=== PATIENT | female | born 1990 | race Caucasian/White ===

== ENCOUNTER 2018-09-23 14:00 | Inpatient (IN) ==
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
[2018-09-23 15:02] LABS: Basophils % 0.1 %; Hematocrit 42.3 % (35.3-44.9); Immature Granulocytes % 0.5 % (0-4); Lymphocytes # 2.7 K/mcL (0.6-4.6); Mean Corpuscular HGB Conc 33.1 g/dL (31.6-35.5); Mean Corpuscular Hemoglobin 28.7 pg (28.0-33.3); Mean Corpuscular Volume 86.7 fL (83.0-100.0); Mean Platelet Volume 8.9 fL (9.4-12.4); Monocytes # 0.8 K/mcL (0.0-1.3); Monocytes % 5.9 %; Neutrophils # 9.8 K/mcL (1.6-8.9); Platelet Count 262 K/mcL (140-400); Red Blood Count 4.88 M/mcL (3.82-4.97); Red Cell Distribution Width 12.3 % (11.5-14.5); Segmented Neutrophils % 73.5 %; White Blood Count 13.3 K/mcL (4.3-11.1)
[2018-09-23 15:13] LABS: Acetaminophen < 10 mcg/mL (10-20); BUN/Creatinine Ratio 14 (6-26); Blood Urea Nitrogen 10 mg/dL (6-20); Calcium 9.2 mg/dL (8.6-10.3); Carbon Dioxide 23 mEq/L (23-29); Chloride 107 mEq/L (98-107); Ethanol < 10 mg/dL (Less than 10); Glucose 108 mg/dL (70-105); Osmolality,Calculated 284 (280-300); Potassium 3.9 mEq/L (3.5-5.1); Salicylate < 2.5 mg/dL (15.0-30.0); Sodium 137 mEq/L (136-145); eGFR For African Americans > 60 (> 60); eGFR For Non-African Americans > 60 (> 60)
[2018-09-23 15:27] LABS: Troponin I < 0.03 ng/mL (< 0.04)
[2018-09-23 15:39] LABS: Bilirubin,Urine Negative (Negative); Blood,Urine Negative (Negative); Clarity,Urine Cloudy (Clear); Color,Urine Yellow (Yellow); Glucose,Urine (UA) Normal (Normal); Ketones,Urine Negative (Negative); Leukocyte Esterase,Urine Trace (Negative); Nitrite,Urine Negative (Negative); Protein,Urine Negative (Neg-Trace); Specific Gravity,Urine 1.023 (1.010-1.025); Urobilinogen,Urine Normal (Normal)
[2018-09-23 15:42] LABS: Bacteria,Urine Moderate per hpf (None-Few); Hyaline Casts,Urine None Seen per lpf (None-Few); Squamous Epithelial Cell,Urine Many per lpf (None-Few)
[2018-09-23 15:48] LABS: Amphetamine Screen,Urine Negative ng/mL (Cutoff=1000); Barbiturate Screen,Urine Negative ng/mL (Cutoff=200); Benzodiazepines Screen,Urine Negative ng/mL (Cutoff=200); Cannabinoid Screen,Urine Negative ng/mL (Cutoff = 50); Cocaine Screen,Urine Negative ng/mL (Cutoff= 300); Opiate Screen,Urine Negative ng/mL (Cutoff=300); Phencyclidine Screen,Urine Negative ng/mL (Cutoff=25)
[2018-09-23] MEDS ORDERED: hydrOXYzine pamoate 25 MG CAPSULE PO PRN (18:01)
[2018-09-23] MEDS ORDERED: *HR* LORazepam 2 MG/ML VIAL IM PRN (18:02)
[2018-09-23] MEDS ORDERED: Haloperidol Lactate 5 MG/ML VIAL IM PRN (18:02)
[2018-09-23] MEDS ORDERED: *HR* LORazepam 1 MG TABLET PO PRN (18:02)
[2018-09-23] MEDS ORDERED: Acetaminophen 325 MG TABLET PO PRN (18:02)
[2018-09-23] MEDS ORDERED: Mag Hydrox/Al Hydrox/Simeth 30 ML UDC PO PRN (18:02)
[2018-09-23] MEDS ORDERED: traZODone 50 MG TABLET PO PRN (18:02)
[2018-09-23] MEDS ORDERED: MOM Conc 10 ML UD.LIQ PO PRN (18:02)
[2018-09-23] MEDS ORDERED: ERENUMAB AOOE 70 MG SQ SCH (18:15)
[2018-09-23] MEDS: SUMAtriptan succinate 50 MG TABLET PO PRN (18:47)
[2018-09-23] MEDS: Gabapentin 300 MG CAPSULE PO SCH (21:25)
[2018-09-23] MEDS: Famotidine 20 MG TABLET PO SCH (21:25)
[2018-09-23] MEDS: hydrOXYzine pamoate 25 MG CAPSULE PO SCH (21:25)
[2018-09-23] MEDS: Topiramate 25 MG TABLET PO SCH (21:25)
[2018-09-24] MEDS ORDERED: FLUoxetine 20 MG CAPSULE PO SCH (09:00)
[2018-09-24] MEDS: ARIPiprazole 10 MG TABLET PO SCH (10:48)
[2018-09-24] MEDS: Topiramate 25 MG TABLET PO SCH ×2 (10:49→21:15)
[2018-09-24] MEDS: Gabapentin 300 MG CAPSULE PO SCH ×2 (10:49→21:15)
[2018-09-24] MEDS: Famotidine 20 MG TABLET PO SCH ×2 (10:49→21:15)
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
--- NOTE | 2018-09-24 16:06 | Electrocardiograph Report ---
[address] [place], [place] [address] Test Date: 2018-09-23 Pat Name: America Ospina Department: [id number] Room: 1A54 Gender: Property Management Assistant: : [id number] Requested By: Nathan Valverde Order Number: [id number] Reading MD: Brett Hrenandez Measurements Intervals [place] Rate: 102 P: 28 [place]: 145 QRS: 23 QRSD: 93 T: 9 QT: 356 QTc: 464 Interpretive Statements Sinus tachycardia Electronically Signed On 09-24-2018 16:04:52 EDT by Brett Hernandez
[2018-09-24] MEDS: FLUoxetine 20 MG CAPSULE PO SCH (18:20)
[2018-09-24] MEDS: hydrOXYzine pamoate 25 MG CAPSULE PO SCH (21:15)
[2018-09-25] MEDS: Gabapentin 300 MG CAPSULE PO SCH (09:14)
[2018-09-25] MEDS: ARIPiprazole 10 MG TABLET PO SCH (09:14)
[2018-09-25] MEDS: Topiramate 25 MG TABLET PO SCH (09:15)
[2018-09-25] MEDS: Famotidine 20 MG TABLET PO SCH (09:15)
[2018-09-25] MEDS: FLUoxetine 20 MG CAPSULE PO SCH (10:00)
[2018-09-25 10:38] VITALS: BP 117/84
--- NOTE | 2018-09-25 11:22 | Discharge Summary ---
Date of Encounter: 09/25/18 Time of Encounter: 11:19 Diagnosis - Discharge Diagnosis (1) Major depress dis, severe Status: Acute (2) Post-traumatic stress disorder Status: Acute Medications - Discharge Medications Prescriptions: traZODone [TraZODone] 50 mg PO HS PRN #30 tablet PRN Reason: Insomnia Dicyclomine [Bentyl] 10 mg PO QID 07/13/15 [History] Docusate [Colace] 100 mg PO BID PRN 07/13/15 [History] ARIPiprazole [Abilify] 10 mg PO QAM 09/23/18 [History] Amitriptyline [Elavil] 25 mg PO HS 09/23/18 [History] Erenumab-Aooe [Aimovig Autoinjector] 70 mg SQ QMONTH 09/23/18 [History] Gabapentin [Neurontin] 300 mg PO BID 09/23/18 [History] Prazosin HCl [Minipress] 10 mg PO DAILY 09/23/18 [History] SUMAtriptan succinate [Imitrex] 50 mg PO AD PRN 09/23/18 [History] Topiramate [Topamax] 25 mg PO BID 09/23/18 [History] hydrOXYzine HCl [Hydroxyzine HCl] 25 mg PO BID PRN 09/23/18 [History] hydrOXYzine HCl [Hydroxyzine HCl] 50 mg PO HS 09/23/18 [History] raNITIdine HCl [Zantac] 150 mg PO BID 09/23/18 [History] FLUoxetine HCl [Prozac] 80 mg PO DAILY capsule 09/25/18 [Rx] traZODone [TraZODone] 50 mg PO HS PRN #30 tablet 09/25/18 [Rx] Allergy/AdvReac Type Severity Reaction Status Date / Time No Known Allergies Allergy Verified 07/13/15 11:13 Results Procedures and tests throughout hospitalization: Completed Lab Orders Category Date Time Status Acetaminophen Stat Lab 09/23/18 14:43 Completed Basic Metabolic Panel Stat Lab 09/23/18 14:43 Completed Complete Blood Count [HEME] Stat Lab 09/23/18 14:43 Completed Drug Screen, Urine [UCHEM] Stat Lab 09/23/18 15:24 Completed Ethanol Stat Lab 09/23/18 14:43 Completed Test Result, Urine [URIN] Stat Lab 09/23/18 15:24 Completed Salicylate Stat Lab 09/23/18 14:43 Completed Troponin I Stat Lab 09/23/18 14:43 Completed Urinalysis reflex Microscopic [URIN] Stat Lab 09/23/18 15:24 Completed Provider Date of admission: 09/23/18 17:24 Primary care physician: PCP NONE Discharging clinician: Rani Tee Psychiatry Exam - Constitutional Vitals: Temp Pulse Resp BP Pulse Ox 98.3 F 115 16 117/84 97 09/25/18 09:00 09/25/18 09:00 09/25/18 09:00 09/25/18 09:00 09/25/18 09:00 General appearance: age & developmentally appropriate, well-groomed, well- nourished - Musculoskeletal Gait: normal Station: relaxed Strength & Tone: normal for patient - Psychiatric Patient Orientation: Yes Person, Yes Time, Yes Place Level of alertness: Alert Behavior: calm, cooperative Psychomotor activity: Normal Eye Contact: Maintains Eye Contact Mood Description: Anxious Affect description: congruent with mood, full range Speech Volume: Normal Speech pattern: normal rate, normal rhythm, normal tone, fluent, spontaneous Language & Vocabulary: consistent with education Thought Process: Linear, Goal Oriented Thought Content: No Suicidal ideation, No Homicidal ideation, No Overt delusions Perceptual Disturbances: No Auditory hallucinations, No Visual hallucinations Attention Span Ability: Capable of Focused Attention Memory Description: Grossly Intact Patient Reliability: Reliable Historian Fund of knowledge: Yes abstraction ability, Yes aware of current events Intelligence Estimate: Average Judgment: Fair Insight: Partial Hospital Course Hospital course: Ms. Ospina is a 28 year old female who was admitted for SI and thoughts of wanting to walk into traffic. This was client's first inpatient hospitalization and she was initially reluctant. Very tearful in the beginning. Wanting to go home to be with her and her kids. However, she was able to work thro ugh her anxiety and did well on the unit. Her home dose of Prozac was increased with positive clinical results. She also took prn Trazodone and slept well. Client asked for Trazodone to use at home and getting a good amount of sleep seemed to help stabilize her as much as anything. Client spoke with her who feels comfortable having her come home and states he wished she had come home yesterday. Client is already linked with services and she has a psychiatrist and therapist. Staff were able to move up her outpatient psychiatry appointment so that she will be seen sooner after discharge. Today client is denying SI, intent, or plan. She reports improvement in her mood and feels stable for discharge. She denies HI/AH/VH. Future oriented. Will plan to discharge today. - Time Spent with Patient Total time spent providing and/or coordinating discharge services: Greater than 30 minutes Assessment and Plan - Patient/Caregiver Discharge Instructions Activity: resume usual activities as tolerated Diet: low fat, low cholesterol - Follow up Plan Follow up with: [facility] [Outside] - 10/24/18 8:30 am (You have an appointment scheduled for Wednesday, October 24, 2018 at 8:30 AM with Doug Cerna.Stephenie for medication management. Please contact the office at least 24 hours in advance if you are unable to keep your appointment(s). ) [facility] [Outside] Oliver Galo MD [Partnered Physician] - 10/16/18 10:00 am (You have an appointment scheduled with your provider Dr. Oliver Galo on Tuesday, October 16, 2018 at 10:00 AM. Please keep your primary care provider informed of any changes in your medications or medical conditions. Please contact the office at the number above at least 24 hours in advance if you are unable to keep this appointment. ) Functional capacity at discharge: independent ambulation Overall status at discharge: Stable Disposition: Home, Self-Care Quality - Multiple Antipsychotics Patient discharged on 2 or more antipsychotic medications: No Procedures - Procedures Procedures: Medication Management, Crisis Stabilization, Supportive Therapy, Group Therapy
[2018-09-25] MEDS: SUMAtriptan succinate 50 MG TABLET PO PRN (11:40)
== END 2018-09-25 14:43 | disposition home or self-care (01) | DRG 751 ==
LOC: EMEROOARM 14:00 → 1ANU 17:24
PROVIDERS: ADMIT Psychiatry & Neurology Psychiatry; ATTEND Psychiatry & Neurology Psychiatry

== ENCOUNTER 2019-10-28 15:25 | Inpatient (IN) ==
[2019-10-28 15:53] LABS: Bacteria,Urine Few per hpf (None-Few); Bilirubin,Urine Negative (Negative); Blood,Urine Negative (Negative); Clarity,Urine Turbid (Clear); Color,Urine Light-Yellow (Yellow); Glucose,Urine (UA) Normal (Normal); Ketones,Urine Negative (Negative); Leukocyte Esterase,Urine Trace (Negative); Mucus,Urine Few per lpf (None-Few); Nitrite,Urine Negative (Negative); PH,Urine 7.5 pH Units (5.0-8.0); Protein,Urine Negative (Neg-Trace); RBC,Urine 0-3 per hpf (0-3); Specific Gravity,Urine 1.014 (1.010-1.025); Squamous Epithelial Cell,Urine Moderate per hpf (None-Few); Urobilinogen,Urine Normal (Normal); WBC,Urine 0-3 per hpf (0-3)
[2019-10-28 15:55] LABS: Basophils % 0.3 %; Eosinophils % 0.2 %; Hematocrit 46.6 % (35.3-44.9); Hemoglobin 15.2 g/dL (11.5-15.4); Immature Granulocytes % 0.3 % (0-4); Lymphocytes # 3.2 K/mcL (0.6-4.6); Lymphocytes % 32.3 %; Mean Corpuscular HGB Conc 32.6 g/dL (31.6-35.5); Mean Corpuscular Hemoglobin 28.8 pg (28.0-33.3); Mean Corpuscular Volume 88.4 fL (83.0-100.0); Mean Platelet Volume 9.1 fL (9.4-12.4); Monocytes # 0.8 K/mcL (0.0-1.3); Monocytes % 8.1 %; Neutrophils # 5.9 K/mcL (1.6-8.9); Platelet Count 292 K/mcL (140-400); Red Blood Count 5.27 M/mcL (3.82-4.97); Red Cell Distribution Width 12.4 % (11.5-14.5); Segmented Neutrophils % 58.8 %
[2019-10-28 15:59] LABS: Amphetamine Screen,Urine Negative ng/mL (Cutoff=1000); Barbiturate Screen,Urine Negative ng/mL (Cutoff=200); Benzodiazepines Screen,Urine Negative ng/mL (Cutoff=200); Cannabinoid Screen,Urine Negative ng/mL (Cutoff = 50); Cocaine Screen,Urine Negative ng/mL (Cutoff= 300); Opiate Screen,Urine Negative ng/mL (Cutoff=300); Phencyclidine Screen,Urine Negative ng/mL (Cutoff=25)
[2019-10-28] MEDS ORDERED: SUMAtriptan succinate 50 MG TABLET PO ONE ×2 (16:01→18:15)
[2019-10-28 16:11] LABS: Acetaminophen < 10 mcg/mL (10-20); BUN/Creatinine Ratio 13 (6-26); Blood Urea Nitrogen 9 mg/dL (6-20); Calcium 10.3 mg/dL (8.6-10.3); Carbon Dioxide 25 mEq/L (23-29); Chloride 104 mEq/L (98-107); Chol/HDL Ratio 5.1 (0-4.9); Cholesterol 238 mg/dL (< 200); Ethanol < 10 mg/dL (Less than 10); Glucose 130 mg/dL (70-105); HDL Cholesterol 47 mg/dL (40-59); LDL Cholesterol,Calculated 136 mg/dL (< 100); Osmolality,Calculated 280 (280-300); Salicylate < 2.5 mg/dL (15.0-30.0); Sodium 135 mEq/L (136-145); Triglycerides 276 mg/dL (< 150); eGFR For African Americans > 60 (> 60); eGFR For Non-African Americans > 60 (> 60)
[2019-10-28 16:22] LABS: Estimated Average Glucose 117 mg/dl; Hemoglobin A1C 5.7 %
[2019-10-28] MEDS ORDERED: Haloperidol Lactate 5 MG/ML VIAL IM PRN (17:22)
[2019-10-28] MEDS ORDERED: MOM Conc 10 ML UD.LIQ PO PRN (17:22)
[2019-10-28] MEDS ORDERED: haloperidoL 5 MG TABLET PO PRN (17:22)
[2019-10-28] MEDS ORDERED: Mag Hydrox/Al Hydrox/Simeth 30 ML UDC PO PRN (17:22)
[2019-10-28] MEDS ORDERED: *HR* LORazepam 2 MG/ML VIAL IM PRN (17:22)
[2019-10-28] MEDS ORDERED: Acetaminophen 325 MG TABLET PO PRN (17:22)
[2019-10-28] MEDS ORDERED: *HR* LORazepam 1 MG TABLET PO PRN (17:22)
[2019-10-28] MEDS: hydrOXYzine pamoate 25 MG CAPSULE PO PRN (21:00)
[2019-10-28] MEDS: traZODone 50 MG TABLET PO PRN (21:00)
[2019-10-29] MEDS ORDERED: MOM Conc 10 ML UD.LIQ PO ONE (13:15)
[2019-10-29] MEDS: traZODone 50 MG TABLET PO PRN (20:33)
[2019-10-29] MEDS: hydrOXYzine pamoate 25 MG CAPSULE PO PRN (20:33)
[2019-10-30 09:58] VITALS: BP 99/76
[2019-10-30] MEDS: hydrOXYzine pamoate 25 MG CAPSULE PO PRN (10:56)
== END 2019-10-30 16:40 | disposition home or self-care (01) | DRG 751 ==
LOC: EMEROOARM 15:25 → 1ANU 17:20
PROVIDERS: ADMIT Psychiatry & Neurology Psychiatry; ATTEND Psychiatry & Neurology Psychiatry

== ENCOUNTER 2021-03-15 14:54 | Inpatient (IN) ==
[2021-03-15 15:47] LABS: Basophils % 0.2 %; Eosinophils # 0.1 K/mcL (0.0-0.6); Eosinophils % 0.7 %; Hemoglobin 13.7 g/dL (11.5-15.4); Immature Granulocytes % 0.3 % (0-4); Lymphocytes # 2.8 K/mcL (0.6-4.6); Lymphocytes % 32.2 %; Mean Corpuscular HGB Conc 34.3 g/dL (31.6-35.5); Mean Corpuscular Hemoglobin 30.5 pg (28.0-33.3); Mean Corpuscular Volume 89.1 fL (83.0-100.0); Monocytes # 0.6 K/mcL (0.0-1.3); Monocytes % 7.4 %; Neutrophils # 5.1 K/mcL (1.6-8.9); Platelet Count 251 K/mcL (140-400); Red Blood Count 4.49 M/mcL (3.82-4.97); Red Cell Distribution Width 11.8 % (11.5-14.5); Segmented Neutrophils % 59.2 %; White Blood Count 8.6 K/mcL (4.3-11.1)
[2021-03-15 16:01] LABS: Amphetamine Screen,Urine Negative ng/mL (Cutoff=1000); Barbiturate Screen,Urine Negative ng/mL (Cutoff=200); Benzodiazepines Screen,Urine Negative ng/mL (Cutoff=200); Cannabinoid Screen,Urine Negative ng/mL (Cutoff = 50); Cocaine Screen,Urine Negative ng/mL (Cutoff= 300); Opiate Screen,Urine Negative ng/mL (Cutoff=300); Phencyclidine Screen,Urine Negative ng/mL (Cutoff=25)
[2021-03-15 16:04] LABS: Acetaminophen < 10 mcg/mL (10-20); BUN/Creatinine Ratio 18 (6-26); Blood Urea Nitrogen 13 mg/dL (6-20); Calcium 8.9 mg/dL (8.6-10.3); Carbon Dioxide 25 mEq/L (23-29); Chloride 108 mEq/L (98-107); Ethanol < 10 mg/dL (Less than 10); Glucose 97 mg/dL (70-105); Osmolality,Calculated 288 (280-300); Potassium 3.4 mEq/L (3.5-5.1); Salicylate < 2.5 mg/dL (15.0-30.0); Sodium 139 mEq/L (136-145); eGFR For African Americans > 60 (> 60); eGFR For Non-African Americans > 60 (> 60)
[2021-03-15 16:04] LABS: Bacteria,Urine Few per hpf (None-Few); Bilirubin,Urine Negative (Negative); Blood,Urine Negative (Negative); Clarity,Urine Turbid (Clear); Color,Urine Yellow (Yellow); Glucose,Urine (UA) Normal (Normal); Ketones,Urine Negative (Negative); Leukocyte Esterase,Urine Small (Negative); Mucus,Urine Few per lpf (None-Few); Nitrite,Urine Negative (Negative); Protein,Urine 30 mg/dL (Neg-Trace); RBC,Urine 0-3 per hpf (0-3); Specific Gravity,Urine 1.024 (1.010-1.025); Squamous Epithelial Cell,Urine Moderate per hpf (None-Few); Urobilinogen,Urine Normal (Normal); WBC,Urine 15-30 per hpf (0-3); White Blood Cell Casts,Urine Few per lpf (None Seen)
[2021-03-15] MEDS ORDERED: Acetaminophen 325 MG TABLET PO PRN (17:37)
[2021-03-15] MEDS ORDERED: Ibuprofen 400 MG TABLET PO PRN (17:37)
[2021-03-15] MEDS ORDERED: *HR* LORazepam 1 MG TABLET PO PRN (17:37)
[2021-03-15] MEDS ORDERED: Haloperidol Lactate 5 MG/ML VIAL IM PRN (17:37)
[2021-03-15] MEDS ORDERED: *HR* LORazepam 2 MG/ML VIAL IM PRN (17:37)
[2021-03-15] MEDS ORDERED: hydrOXYzine pamoate 25 MG CAPSULE PO PRN (17:37)
[2021-03-15] MEDS ORDERED: haloperidoL 5 MG TABLET PO PRN (17:37)
[2021-03-15] MEDS ORDERED: SUMAtriptan succinate 50 MG TABLET PO PRN (17:58)
[2021-03-15 18:22] LABS: Influenza A PCR Negative (Negative); Influenza B PCR Negative (Negative); Resp. Syncytial Virus PCR Negative (Negative)
[2021-03-15 18:28] LABS: SARS-CoV-2 by PCR (In House) Negative (Negative)
[2021-03-15] MEDS: traZODone 50 MG TABLET PO PRN (22:49)
[2021-03-16] MEDS: Lurasidone 20 MG TABLET PO SCH (09:21)
[2021-03-16] MEDS ORDERED: Mag Hydrox/Al Hydrox/Simeth 30 ML UDC PO PRN (11:14)
[2021-03-16] MEDS ORDERED: MOM Conc 10 ML UD.LIQ PO PRN (11:14)
[2021-03-16] MEDS: traZODone 50 MG TABLET PO PRN (20:14)
[2021-03-17] MEDS: Lurasidone 20 MG TABLET PO SCH (08:46)
[2021-03-17 09:57] VITALS: BP 105/74; PULSE 77; TEMP 98.3; O2SAT 97
== END 2021-03-17 10:15 | disposition home or self-care (01) | DRG 751 ==
LOC: EMEROOARM 14:54 → 1ANU 20:20
PROVIDERS: ADMIT Psychiatry & Neurology Psychiatry; ATTEND Psychiatry & Neurology Psychiatry

== ENCOUNTER 2021-03-26 16:21 | Inpatient (IN) ==
[2021-03-26 17:09] LABS: Bilirubin,Urine Negative (Negative); Blood,Urine Negative (Negative); Clarity,Urine Turbid (Clear); Color,Urine Yellow (Yellow); Glucose,Urine (UA) Normal (Normal); Ketones,Urine Trace mg/dL (Negative); Leukocyte Esterase,Urine Negative (Negative); Mucus,Urine Many per lpf (None-Few); Nitrite,Urine Negative (Negative); Protein,Urine 50 mg/dL (Neg-Trace); RBC,Urine 0-3 per hpf (0-3); Specific Gravity,Urine > 1.030 (1.010-1.025); Squamous Epithelial Cell,Urine Moderate per hpf (None-Few); Urobilinogen,Urine Normal (Normal)
[2021-03-26 17:10] LABS: Basophils % 0.2 %; Eosinophils # 0.1 K/mcL (0.0-0.6); Eosinophils % 0.7 %; Hematocrit 44.7 % (35.3-44.9); Hemoglobin 14.5 g/dL (11.5-15.4); Immature Granulocytes % 0.3 % (0-4); Lymphocytes # 2.7 K/mcL (0.6-4.6); Mean Corpuscular HGB Conc 32.4 g/dL (31.6-35.5); Mean Corpuscular Hemoglobin 29.5 pg (28.0-33.3); Mean Platelet Volume 8.9 fL (9.4-12.4); Monocytes # 0.6 K/mcL (0.0-1.3); Monocytes % 6.7 %; Platelet Count 275 K/mcL (140-400); Red Blood Count 4.91 M/mcL (3.82-4.97); Red Cell Distribution Width 11.8 % (11.5-14.5); Segmented Neutrophils % 63.1 %; White Blood Count 9.4 K/mcL (4.3-11.1)
[2021-03-26 17:17] LABS: Amphetamine Screen,Urine Negative ng/mL (Cutoff=1000); Barbiturate Screen,Urine Negative ng/mL (Cutoff=200); Benzodiazepines Screen,Urine Negative ng/mL (Cutoff=200); Cannabinoid Screen,Urine Negative ng/mL (Cutoff = 50); Cocaine Screen,Urine Negative ng/mL (Cutoff= 300); Opiate Screen,Urine Negative ng/mL (Cutoff=300); Phencyclidine Screen,Urine Negative ng/mL (Cutoff=25)
[2021-03-26 17:20] LABS: Estimated Average Glucose 117 mg/dl; Hemoglobin A1C 5.7 %
[2021-03-26 17:29] LABS: Acetaminophen < 10 mcg/mL (10-20); BUN/Creatinine Ratio 14 (6-26); Blood Urea Nitrogen 11 mg/dL (6-20); Calcium 9.5 mg/dL (8.6-10.3); Carbon Dioxide 26 mEq/L (23-29); Chloride 104 mEq/L (98-107); Chol/HDL Ratio 5.3 (0-4.9); Cholesterol 255 mg/dL (< 200); Ethanol < 10 mg/dL (Less than 10); Glucose 122 mg/dL (70-105); HDL Cholesterol 48 mg/dL (40-59); LDL Cholesterol,Calculated 181 mg/dL (< 100); Osmolality,Calculated 287 (280-300); Potassium 3.8 mEq/L (3.5-5.1); Salicylate < 2.5 mg/dL (15.0-30.0); Sodium 138 mEq/L (136-145); Triglycerides 130 mg/dL (< 150); eGFR For African Americans > 60 (> 60); eGFR For Non-African Americans > 60 (> 60)
[2021-03-26] MEDS ORDERED: *HR* LORazepam 0.5 MG TABLET PO ONE (17:53)
[2021-03-26 20:59] LABS: Influenza A PCR Negative (Negative); Influenza B PCR Negative (Negative); Resp. Syncytial Virus PCR Negative (Negative)
[2021-03-26 21:01] LABS: SARS-CoV-2 by PCR (In House) Negative (Negative)
[2021-03-26] MEDS ORDERED: haloperidoL 5 MG TABLET PO PRN (21:19)
[2021-03-26] MEDS ORDERED: *HR* LORazepam 1 MG TABLET PO PRN (21:19)
[2021-03-26] MEDS ORDERED: Haloperidol Lactate 5 MG/ML VIAL IM PRN (21:19)
[2021-03-26] MEDS ORDERED: Acetaminophen 325 MG TABLET PO PRN (21:19)
[2021-03-26] MEDS ORDERED: Ibuprofen 400 MG TABLET PO PRN (21:19)
[2021-03-26] MEDS ORDERED: *HR* LORazepam 2 MG/ML VIAL IM PRN (21:19)
[2021-03-26] MEDS: traZODone 50 MG TABLET PO PRN (22:38)
[2021-03-26] MEDS: hydrOXYzine pamoate 25 MG CAPSULE PO PRN (22:38)
[2021-03-27] MEDS ORDERED: Rizatriptan Benzoate [Rizatriptan] 10 MG Tab.Rapdis PO PRN (12:05)
[2021-03-27] MEDS ORDERED: traZODone 50 MG TABLET PO PRN (12:05)
[2021-03-27] MEDS: Topiramate 100 MG TABLET PO SCH (12:55)
[2021-03-27] MEDS: ERENUMAB AOOE SQ SCH (18:29)
[2021-03-27] MEDS: traZODone 50 MG TABLET PO PRN (21:51)
[2021-03-27] MEDS: hydrOXYzine pamoate 25 MG CAPSULE PO PRN (21:52)
[2021-03-28] MEDS ORDERED: Lurasidone 20 MG TABLET PO SCH (09:00)
[2021-03-28] MEDS: Lurasidone 20 MG TABLET PO SCH (09:02)
[2021-03-28] MEDS: Topiramate 25 MG TABLET PO SCH ×2 (09:03→10:28)
[2021-03-28] MEDS: Topiramate 100 MG TABLET PO SCH ×2 (10:28→20:20)
[2021-03-28] MEDS: traZODone 50 MG TABLET PO PRN (20:20)
[2021-03-28] MEDS: ERENUMAB AOOE SQ SCH (20:20)
[2021-03-29] MEDS: Lurasidone 20 MG TABLET PO SCH (09:25)
[2021-03-29] MEDS: Topiramate 100 MG TABLET PO SCH (20:39)
[2021-03-29] MEDS: hydrOXYzine pamoate 25 MG CAPSULE PO PRN (20:39)
[2021-03-29] MEDS: traZODone 50 MG TABLET PO PRN (20:40)
[2021-03-30] MEDS: Lurasidone 20 MG TABLET PO SCH (08:39)
[2021-03-30 09:21] VITALS: BP 104/73; PULSE 83; TEMP 98.2; O2SAT 97
[2021-03-30] MEDS: hydrOXYzine pamoate 25 MG CAPSULE PO PRN (12:39)
== END 2021-03-30 14:15 | disposition home or self-care (01) | DRG 751 ==
LOC: EMEROOARM 16:21 → 1ANU 21:27
PROVIDERS: ADMIT Psychiatry & Neurology Forensic Psychiatry; ATTEND Psychiatry & Neurology Forensic Psychiatry

== ENCOUNTER 2021-07-19 01:50 | Inpatient (IN) ==
[2021-07-19] MEDS ORDERED: Isovue-370 500 ML BOTTLE IVP ONE (02:24)
[2021-07-19] MEDS ORDERED: Ondansetron 4 MG/2 ML VIAL IVP ONE (02:33)
[2021-07-19] MEDS ORDERED: 0.9 % Sodium Chloride 1,000 ML IV ONE (02:33)
[2021-07-19] MEDS ORDERED: *HR* FentaNYL (PF) 100 MCG/2 ML VIAL IVP ONE (02:33)
[2021-07-19 02:50] LABS: Basophils % 0.2 %; Eosinophils % 0.2 %; Hematocrit 41.8 % (35.3-44.9); Hemoglobin 14.1 g/dL (11.5-15.4); Immature Granulocytes % 0.4 % (0-4); Lymphocytes # 6.9 K/mcL (0.6-4.6); Lymphocytes % 37.1 %; Mean Corpuscular HGB Conc 33.7 g/dL (31.6-35.5); Mean Corpuscular Hemoglobin 29.9 pg (28.0-33.3); Mean Corpuscular Volume 88.6 fL (83.0-100.0); Mean Platelet Volume 9.5 fL (9.4-12.4); Monocytes % 10.9 %; Neutrophils # 9.5 K/mcL (1.6-8.9); Platelet Count 303 K/mcL (140-400); Red Blood Count 4.72 M/mcL (3.82-4.97); Segmented Neutrophils % 51.2 %; White Blood Count 18.5 K/mcL (4.3-11.1)
[2021-07-19 02:57] LABS: Bacteria,Urine Few per hpf (None-Few); Bilirubin,Urine Negative (Negative); Blood,Urine Negative (Negative); Clarity,Urine Ex.Turbid (Clear); Color,Urine Light-Orange (Yellow); Glucose,Urine (UA) Normal (Normal); Ketones,Urine Trace mg/dL (Negative); Leukocyte Esterase,Urine Small (Negative); Mucus,Urine Moderate per lpf (None-Few); Nitrite,Urine Negative (Negative); PH,Urine 5.5 pH Units (5.0-8.0); Protein,Urine 50 mg/dL (Neg-Trace); Specific Gravity,Urine > 1.030 (1.010-1.025); Squamous Epithelial Cell,Urine Moderate per hpf (None-Few); Urobilinogen,Urine Normal (Normal); WBC,Urine 0-3 per hpf (0-3)
[2021-07-19 03:08] LABS: Alanine Aminotransferase 28 Units/L (7-52); Albumin 4.5 g/dL (3.5-5.7); Albumin/Globulin Ratio 1.5 (1.1-2.2); Alkaline Phosphatase 79 Units/L (34-104); Amylase 16 Units/L (29-103); Aspartate Amino Transferase 23 Units/L (13-39); BUN/Creatinine Ratio 17 (6-26); Bilirubin,Total 0.6 mg/dL (0.3-1.0); Blood Urea Nitrogen 13 mg/dL (6-20); Calcium 9.6 mg/dL (8.6-10.3); Carbon Dioxide 21 mEq/L (23-29); Chloride 103 mEq/L (98-107); Glucose 190 mg/dL (70-105); Lipase 14 Units/L (11-82); Osmolality,Calculated 289 (280-300); Potassium 3.1 mEq/L (3.5-5.1); Sodium 137 mEq/L (136-145); Total Protein 7.5 g/dL (6.4-8.9); eGFR For African Americans > 60 (> 60); eGFR For Non-African Americans > 60 (> 60)
[2021-07-19] MEDS ORDERED: Piperacillin/Tazobactam 3.375 GM in 0.9 % Sodium Chloride Mini Bag 100 ML IVP ONE (03:59)
[2021-07-19] MEDS ORDERED: Ketorolac 30 MG/ML VIAL IVP PRN ×2 (04:52→18:20)
[2021-07-19] MEDS ORDERED: Ondansetron 4 MG/2 ML VIAL IVP PRN ×2 (04:53→18:20)
[2021-07-19] MEDS ORDERED: Naloxone 0.4 MG/ML INJ IVP PRN ×2 (04:53→18:20)
[2021-07-19] MEDS ORDERED: 0.9 % Sodium Chloride 1,000 ML IVC SCH (05:00)
[2021-07-19] MEDS: Acetaminophen IV 1,000 MG/100 ML BAG IVPB SCH ×3 (05:56→23:55)
[2021-07-19 08:01] LABS: INR 1.2; Prothrombin Time 13.2 Seconds (9.4-12.1)
[2021-07-19] MEDS ORDERED: Dexmedetomidine HCl 400 MCG/100 ML MLS IVC ONE (09:16)
[2021-07-19] MEDS ORDERED: Ketamine HCL *QUVA* 50mg (1mL) SYRINGE ONE (09:21)
[2021-07-19] MEDS ORDERED: *HR* Midazolam HCl 2 MG/2 ML VIAL ONE (09:22)
[2021-07-19] MEDS ORDERED: *HR* FentaNYL (PF) 100 MCG/2 ML VIAL ONE (09:22)
[2021-07-19] MEDS ORDERED: *HR* Succinylcholine 200 MG/10 ML VIAL IVP ONE (09:22)
[2021-07-19] MEDS ORDERED: *HR* Propofol 200 MG/20 ML VIAL IVP ONE (09:22)
[2021-07-19] MEDS ORDERED: Lidocaine HCL 4 ML Topical Solution (Laryng-O-Jet Kit Sterile Pak) TP ONE (09:22)
[2021-07-19] MEDS ORDERED: *HR* Rocuronium Bromide 50 MG/5 ML VIAL ONE (09:27)
[2021-07-19] MEDS ORDERED: Ondansetron 4 MG/2 ML VIAL ONE (09:27)
[2021-07-19] MEDS ORDERED: *HR* Magnesium Sulfate 1 GM/2 ML VIAL ONE (09:27)
[2021-07-19] MEDS ORDERED: Sugammadex Sodium 200 MG/2 ML VIAL IV ONE (09:27)
[2021-07-19] MEDS ORDERED: Lidocaine -MPF 2% 2 ML VIAL ONE (09:27)
[2021-07-19 10:52] LABS: Estimated Average Glucose 111 mg/dl; Hemoglobin A1C 5.5 %
[2021-07-19] MEDS ORDERED: cefTRIAXone 1,000 MG in 0.9 % Sodium Chloride 10 ML IVPB SCH (12:00)
[2021-07-19] MEDS ORDERED: *HR* HYDROMORPHONE 2 MG/ML VIAL ONE (15:37)
[2021-07-19] MEDS: 0.9 % Sodium Chloride 1,000 ML IVC SCH (20:04)
[2021-07-20] MEDS: 0.9 % Sodium Chloride 1,000 ML IVC SCH (04:47)
[2021-07-20 04:56] LABS: Basophils % 0.1 %; Hematocrit 40.5 % (35.3-44.9); Hemoglobin 13.5 g/dL (11.5-15.4); Immature Granulocytes % 0.5 % (0-4); Lymphocytes % 12.7 %; Mean Corpuscular HGB Conc 33.3 g/dL (31.6-35.5); Mean Corpuscular Hemoglobin 29.9 pg (28.0-33.3); Mean Corpuscular Volume 89.6 fL (83.0-100.0); Mean Platelet Volume 9.3 fL (9.4-12.4); Monocytes # 1.1 K/mcL (0.0-1.3); Monocytes % 7.1 %; Neutrophils # 12.3 K/mcL (1.6-8.9); Platelet Count 242 K/mcL (140-400); Red Blood Count 4.52 M/mcL (3.82-4.97); Red Cell Distribution Width 12.1 % (11.5-14.5); Segmented Neutrophils % 79.6 %; White Blood Count 15.5 K/mcL (4.3-11.1)
[2021-07-20] MEDS: Acetaminophen IV 1,000 MG/100 ML BAG IVPB SCH ×2 (06:13→12:08)
[2021-07-20] MEDS ORDERED: Ibuprofen 800 MG TABLET PO ONE (07:06)
[2021-07-20] MEDS ORDERED: SUMAtriptan 6 MG/0.5 ML SQ ONE (08:24)
[2021-07-20] MEDS ORDERED: Metoclopramide 10 MG/2 ML VIAL IVP ONE (08:24)
[2021-07-20 08:44] LABS: BUN/Creatinine Ratio 12 (6-26); Blood Urea Nitrogen 7 mg/dL (6-20); Calcium 8.6 mg/dL (8.6-10.3); Carbon Dioxide 18 mEq/L (23-29); Chloride 108 mEq/L (98-107); Glucose 134 mg/dL (70-105); Magnesium 1.8 mg/dL (1.6-2.6); Osmolality,Calculated 282 (280-300); Phosphorous 3.2 mg/dL (2.7-4.5); Sodium 136 mEq/L (136-145); eGFR For African Americans > 60 (> 60); eGFR For Non-African Americans > 60 (> 60)
[2021-07-20] MEDS ORDERED: Sodium Bicarbonate 75 MEQ in 0.45 % Sodium Chloride 1,000 ML IVC SCH (09:15)
[2021-07-20] MEDS: Topiramate 100 MG TABLET PO SCH (09:27)
[2021-07-20] MEDS: Lurasidone 20 MG TABLET PO SCH (09:28)
[2021-07-20] MEDS ORDERED: cefTRIAXone 1,000 MG in 0.9 % Sodium Chloride 10 ML IVPB SCH (12:00)
[2021-07-20] MEDS ORDERED: Acetaminophen 325 MG TABLET PO PRN (13:20)
[2021-07-20] MEDS: Ibuprofen 800 MG TABLET PO SCH ×2 (16:33→22:59)
[2021-07-20] MEDS ORDERED: Ketorolac 30 MG/ML VIAL IVP ONE (22:50)
[2021-07-21 08:02] VITALS: BP 127/88; PULSE 81; TEMP 98.4; O2SAT 95
[2021-07-21] MEDS: Lurasidone 20 MG TABLET PO SCH (08:07)
[2021-07-21] MEDS: Ibuprofen 800 MG TABLET PO SCH (08:07)
[2021-07-21] MEDS: Topiramate 100 MG TABLET PO SCH (08:07)
[2021-07-21 08:47] LABS: Basophils % 0.2 %; Eosinophils # 0.2 K/mcL (0.0-0.6); Eosinophils % 1.3 %; Hematocrit 41.6 % (35.3-44.9); Hemoglobin 13.7 g/dL (11.5-15.4); Immature Granulocytes % 0.5 % (0-4); Lymphocytes # 3.3 K/mcL (0.6-4.6); Lymphocytes % 20.5 %; Mean Corpuscular HGB Conc 32.9 g/dL (31.6-35.5); Mean Corpuscular Hemoglobin 29.9 pg (28.0-33.3); Mean Corpuscular Volume 90.8 fL (83.0-100.0); Mean Platelet Volume 9.1 fL (9.4-12.4); Monocytes # 1.3 K/mcL (0.0-1.3); Neutrophils # 11.4 K/mcL (1.6-8.9); Platelet Count 258 K/mcL (140-400); Red Blood Count 4.58 M/mcL (3.82-4.97); Red Cell Distribution Width 12.5 % (11.5-14.5); Segmented Neutrophils % 69.5 %; White Blood Count 16.3 K/mcL (4.3-11.1)
[2021-07-21 09:09] LABS: BUN/Creatinine Ratio 13 (6-26); Blood Urea Nitrogen 11 mg/dL (6-20); Calcium 9.2 mg/dL (8.6-10.3); Carbon Dioxide 26 mEq/L (23-29); Chloride 106 mEq/L (98-107); Glucose 102 mg/dL (70-105); Osmolality,Calculated 284 (280-300); Potassium 3.8 mEq/L (3.5-5.1); Sodium 137 mEq/L (136-145); eGFR For African Americans > 60 (> 60); eGFR For Non-African Americans > 60 (> 60)
== END 2021-07-21 12:15 | disposition home or self-care (01) | DRG 227 ==
LOC: EMEROOARM 01:50 → 3ANU 01:50 → SUATTDRO 04:25 → 3ANU 05:11 → SUATTDRO 07-20 07:22
PROVIDERS: ADMIT Internal Medicine; ATTEND Internal Medicine

== ENCOUNTER 2021-08-24 15:35 | Inpatient (IN) ==
[2021-08-24 16:29] LABS: Basophils % 0.2 %; Eosinophils # 0.1 K/mcL (0.0-0.6); Eosinophils % 0.8 %; Hematocrit 39.7 % (35.3-44.9); Hemoglobin 13.4 g/dL (11.5-15.4); Immature Granulocytes % 0.3 % (0-4); Lymphocytes # 2.1 K/mcL (0.6-4.6); Lymphocytes % 20.9 %; Mean Corpuscular HGB Conc 33.8 g/dL (31.6-35.5); Mean Platelet Volume 9.4 fL (9.4-12.4); Monocytes # 0.6 K/mcL (0.0-1.3); Monocytes % 6.4 %; Neutrophils # 7.1 K/mcL (1.6-8.9); Platelet Count 249 K/mcL (140-400); Red Blood Count 4.46 M/mcL (3.82-4.97); Red Cell Distribution Width 12.3 % (11.5-14.5); Segmented Neutrophils % 71.4 %
[2021-08-24 16:43] LABS: Acetaminophen < 10 mcg/mL (10-20); BUN/Creatinine Ratio 18 (6-26); Blood Urea Nitrogen 12 mg/dL (6-20); Calcium 9.1 mg/dL (8.6-10.3); Carbon Dioxide 20 mEq/L (23-29); Chloride 112 mEq/L (98-107); Ethanol < 10 mg/dL (Less than 10); Glucose 133 mg/dL (70-105); Osmolality,Calculated 292 (280-300); Potassium 3.4 mEq/L (3.5-5.1); Salicylate < 2.5 mg/dL (15.0-30.0); Sodium 140 mEq/L (136-145); eGFR For African Americans > 60 (> 60); eGFR For Non-African Americans > 60 (> 60)
[2021-08-24 17:01] LABS: Bacteria,Urine Few per hpf (None-Few); Bilirubin,Urine Negative (Negative); Blood,Urine Negative (Negative); Clarity,Urine Turbid (Clear); Color,Urine Yellow (Yellow); Glucose,Urine (UA) Normal (Normal); Hyaline Casts,Urine Few per lpf (None Seen); Ketones,Urine Negative (Negative); Leukocyte Esterase,Urine Small (Negative); Mucus,Urine Few per lpf (None-Few); Nitrite,Urine Positive (Negative); Protein,Urine Negative (Neg-Trace); RBC,Urine 0-3 per hpf (0-3); Squamous Epithelial Cell,Urine Few per hpf (None-Few); Urobilinogen,Urine Normal (Normal)
[2021-08-24 17:11] LABS: Amphetamine Screen,Urine Negative ng/mL (Cutoff=1000); Barbiturate Screen,Urine Negative ng/mL (Cutoff=200); Benzodiazepines Screen,Urine Negative ng/mL (Cutoff=200); Cannabinoid Screen,Urine Negative ng/mL (Cutoff = 50); Cocaine Screen,Urine Negative ng/mL (Cutoff= 300); Opiate Screen,Urine Negative ng/mL (Cutoff=300); Phencyclidine Screen,Urine Negative ng/mL (Cutoff=25)
[2021-08-24 22:01] LABS: Influenza A PCR Negative (Negative); Influenza B PCR Negative (Negative); Resp. Syncytial Virus PCR Negative (Negative)
[2021-08-24 22:08] LABS: SARS-CoV-2 by PCR (In House) Negative (Negative)
[2021-08-24] MEDS ORDERED: haloperidoL 5 MG TABLET PO PRN (23:20)
[2021-08-24] MEDS ORDERED: *HR* LORazepam 1 MG TABLET PO PRN (23:20)
[2021-08-24] MEDS ORDERED: *HR* LORazepam 2 MG/ML VIAL IM PRN (23:20)
[2021-08-24] MEDS ORDERED: traZODone 50 MG TABLET PO PRN (23:20)
[2021-08-24] MEDS ORDERED: Haloperidol Lactate 5 MG/ML VIAL IM PRN (23:20)
[2021-08-24] MEDS ORDERED: Acetaminophen 325 MG TABLET PO PRN (23:20)
[2021-08-25] MEDS ORDERED: traZODone 50 MG TABLET PO PRN (11:07)
[2021-08-25] MEDS ORDERED: RIZATRIPTAN BENZOATE 10 MG PO PRN (11:07)
[2021-08-25 12:45] LABS: Albumin 4.2 g/dL (3.5-5.7); Albumin/Globulin Ratio 1.5 (1.1-2.2); Bilirubin,Direct 0.1 mg/dL (0.0-0.2); Bilirubin,Indirect 0.4 mg/dL (0.0-1.0); Bilirubin,Total 0.5 mg/dL (0.3-1.0); Globulin 2.8 g/dL (2.4-3.5)
[2021-08-25] MEDS: Nitrofurantoin (BID) 100 MG CAPSULE PO SCH (16:41)
[2021-08-25] MEDS: hydrOXYzine pamoate 25 MG CAPSULE PO PRN ×2 (18:53→21:58)
[2021-08-26] MEDS: Lurasidone 20 MG TABLET PO SCH (08:39)
[2021-08-26] MEDS: Nitrofurantoin (BID) 100 MG CAPSULE PO SCH ×2 (08:40→16:41)
[2021-08-26] MEDS ORDERED: Topiramate [Trokendi Xr] 100 MG Cap.Er.24h PO SCH (09:00)
[2021-08-26] MEDS: hydrOXYzine pamoate 25 MG CAPSULE PO PRN ×2 (16:41→21:18)
[2021-08-26] MEDS: Topiramate 25 MG TABLET PO SCH (21:17)
[2021-08-27] MEDS ORDERED: Nitrofurantoin (BID) 100 MG CAPSULE PO SCH (08:00)
[2021-08-27] MEDS: Topiramate 25 MG TABLET PO SCH (09:03)
[2021-08-27] MEDS: Lurasidone 20 MG TABLET PO SCH (09:03)
[2021-08-27 09:37] VITALS: BP 114/78; PULSE 87; TEMP 97.9; O2SAT 97
[2021-08-27] MEDS: hydrOXYzine pamoate 25 MG CAPSULE PO PRN (11:33)
== END 2021-08-27 13:03 | disposition home or self-care (01) | DRG 751 ==
LOC: EMEROOARM 15:35 → 1ANU 22:46
PROVIDERS: ADMIT Psychiatry & Neurology Forensic Psychiatry; ATTEND Psychiatry & Neurology Forensic Psychiatry

== ENCOUNTER 2021-08-31 16:29 | Observation (INO) ==
[2021-08-31] MEDS ORDERED: Isovue-370 500 ML BOTTLE IVP ONE (17:02)
[2021-08-31 17:53] LABS: Basophils % 0.1 %; Eosinophils % 0.3 %; Hematocrit 40.7 % (35.3-44.9); Hemoglobin 13.6 g/dL (11.5-15.4); Immature Granulocytes % 0.3 % (0-4); Lymphocytes # 2.9 K/mcL (0.6-4.6); Lymphocytes % 26.5 %; Mean Corpuscular HGB Conc 33.4 g/dL (31.6-35.5); Mean Corpuscular Hemoglobin 29.9 pg (28.0-33.3); Mean Corpuscular Volume 89.5 fL (83.0-100.0); Mean Platelet Volume 9.1 fL (9.4-12.4); Monocytes # 0.9 K/mcL (0.0-1.3); Neutrophils # 7.1 K/mcL (1.6-8.9); Platelet Count 305 K/mcL (140-400); Red Blood Count 4.55 M/mcL (3.82-4.97); Red Cell Distribution Width 12.2 % (11.5-14.5); Segmented Neutrophils % 64.8 %
[2021-08-31 18:06] LABS: Alanine Aminotransferase 13 Units/L (7-52); Albumin 4.3 g/dL (3.5-5.7); Albumin/Globulin Ratio 1.4 (1.1-2.2); Alkaline Phosphatase 87 Units/L (34-104); Aspartate Amino Transferase 13 Units/L (13-39); BUN/Creatinine Ratio 17 (6-26); Bilirubin,Total 0.9 mg/dL (0.3-1.0); Blood Urea Nitrogen 11 mg/dL (6-20); Calcium 9.5 mg/dL (8.6-10.3); Carbon Dioxide 26 mEq/L (23-29); Chloride 106 mEq/L (98-107); Creatine Kinase 110 Units/L (30-223); Glucose 113 mg/dL (70-105); Magnesium 1.9 mg/dL (1.6-2.6); Osmolality,Calculated 286 (280-300); Potassium 3.4 mEq/L (3.5-5.1); Sodium 138 mEq/L (136-145); Total Protein 7.3 g/dL (6.4-8.9); eGFR For African Americans > 60 (> 60); eGFR For Non-African Americans > 60 (> 60)
[2021-08-31 19:56] LABS: Bilirubin,Urine Negative (Negative); Blood,Urine Large (Negative); Clarity,Urine Clear (Clear); Color,Urine Colorless (Yellow); Glucose,Urine (UA) Normal (Normal); Ketones,Urine 20 mg/dL (Negative); Leukocyte Esterase,Urine Moderate (Negative); Nitrite,Urine Negative (Negative); Protein,Urine Trace mg/dL (Neg-Trace); RBC,Urine TNTC per hpf (0-3); Specific Gravity,Urine > 1.030 (1.010-1.025); Squamous Epithelial Cell,Urine Few per hpf (None-Few); Urobilinogen,Urine Normal (Normal); WBC,Urine 30-50 per hpf (0-3)
[2021-08-31] MEDS ORDERED: traZODone 50 MG TABLET PO SCH (23:00)
[2021-08-31] MEDS ORDERED: hydrOXYzine pamoate 25 MG CAPSULE PO PRN (23:01)
[2021-08-31] MEDS ORDERED: cephALEXin 500 MG CAPSULE PO ONE (23:02)
[2021-09-01] MEDS: Lurasidone 20 MG TABLET PO SCH ×2 (00:15→10:51)
[2021-09-01] MEDS: Topiramate 100 MG TABLET PO SCH ×3 (00:17→20:27)
[2021-09-01] MEDS ORDERED: Ondansetron 4 MG/2 ML VIAL IVP PRN (07:51)
[2021-09-01] MEDS ORDERED: Melatonin 3 MG TABLET PO PRN (07:51)
[2021-09-01] MEDS ORDERED: Naloxone 0.4 MG/ML INJ IVP PRN (07:51)
[2021-09-01] MEDS ORDERED: traZODone 50 MG TABLET PO PRN (10:37)
[2021-09-01] MEDS ORDERED: Rizatriptan Benzoate [Rizatriptan] 10 MG Tab.Rapdis PO PRN (10:37)
[2021-09-01] MEDS ORDERED: hydrOXYzine pamoate 25 MG CAPSULE PO PRN (10:37)
[2021-09-01] MEDS ORDERED: Lurasidone 20 MG TABLET PO SCH (10:45)
[2021-09-02 04:24] LABS: Basophils % 0.3 %; Eosinophils # 0.1 K/mcL (0.0-0.6); Eosinophils % 1.2 %; Hematocrit 38.9 % (35.3-44.9); Hemoglobin 12.7 g/dL (11.5-15.4); Immature Granulocytes % 0.3 % (0-4); Lymphocytes % 34.8 %; Mean Corpuscular HGB Conc 32.6 g/dL (31.6-35.5); Mean Corpuscular Hemoglobin 29.5 pg (28.0-33.3); Mean Corpuscular Volume 90.3 fL (83.0-100.0); Mean Platelet Volume 9.3 fL (9.4-12.4); Monocytes # 0.9 K/mcL (0.0-1.3); Monocytes % 7.8 %; Neutrophils # 6.4 K/mcL (1.6-8.9); Platelet Count 303 K/mcL (140-400); Red Blood Count 4.31 M/mcL (3.82-4.97); Red Cell Distribution Width 12.3 % (11.5-14.5); Segmented Neutrophils % 55.6 %; White Blood Count 11.5 K/mcL (4.3-11.1)
[2021-09-02 04:40] LABS: BUN/Creatinine Ratio 16 (6-26); Blood Urea Nitrogen 13 mg/dL (6-20); Calcium 9.2 mg/dL (8.6-10.3); Carbon Dioxide 23 mEq/L (23-29); Chloride 109 mEq/L (98-107); Glucose 103 mg/dL (70-105); Osmolality,Calculated 288 (280-300); Phosphorous 4.4 mg/dL (2.7-4.5); Potassium 3.8 mEq/L (3.5-5.1); Sodium 139 mEq/L (136-145); eGFR For African Americans > 60 (> 60); eGFR For Non-African Americans > 60 (> 60)
[2021-09-02] MEDS ORDERED: Topiramate [Trokendi Xr] 100 MG Cap.Er.24h PO SCH (09:00)
[2021-09-02] MEDS: Topiramate 100 MG TABLET PO SCH ×2 (09:57→22:18)
[2021-09-02] MEDS: Lurasidone 20 MG TABLET PO SCH (09:57)
[2021-09-03 06:45] VITALS: BP 101/67; PULSE 72; TEMP 97.6; O2SAT 97
[2021-09-03] MEDS: Lurasidone 20 MG TABLET PO SCH (09:16)
[2021-09-03] MEDS: Topiramate 100 MG TABLET PO SCH (09:16)
== END 2021-09-03 12:02 | disposition other institution (70) ==
LOC: EMEROOARM 16:29 → 3BNU 16:29 → SUATTDRO 09-01 08:41 → 3BNU 09-01 09:53
PROVIDERS: ADMIT Hospitalist; ATTEND Internal Medicine

== ENCOUNTER 2021-12-12 11:50 | Inpatient (IN) ==
[2021-12-12 12:50] LABS: Basophils % 0.3 %; Eosinophils # 0.1 K/mcL (0.0-0.6); Eosinophils % 0.7 %; Hemoglobin 13.9 g/dL (11.5-15.4); Immature Granulocytes % 0.4 % (0-4); Lymphocytes # 2.4 K/mcL (0.6-4.6); Lymphocytes % 23.7 %; Mean Corpuscular HGB Conc 33.9 g/dL (31.6-35.5); Mean Corpuscular Hemoglobin 29.6 pg (28.0-33.3); Mean Corpuscular Volume 87.2 fL (83.0-100.0); Mean Platelet Volume 9.1 fL (9.4-12.4); Monocytes # 0.6 K/mcL (0.0-1.3); Monocytes % 5.9 %; Neutrophils # 6.9 K/mcL (1.6-8.9); Platelet Count 253 K/mcL (140-400); Red Cell Distribution Width 11.8 % (11.5-14.5); White Blood Count 9.9 K/mcL (4.3-11.1)
[2021-12-12 12:51] LABS: Bacteria,Urine Few per hpf (None-Few); Bilirubin,Urine Negative (Negative); Blood,Urine Negative (Negative); Clarity,Urine Turbid (Clear); Color,Urine Yellow (Yellow); Glucose,Urine (UA) Normal (Normal); Ketones,Urine Negative (Negative); Leukocyte Esterase,Urine Large (Negative); Mucus,Urine Few per lpf (None-Few); Nitrite,Urine Negative (Negative); PH,Urine 5.5 pH Units (5.0-8.0); Protein,Urine Trace mg/dL (Neg-Trace); RBC,Urine 0-3 per hpf (0-3); Specific Gravity,Urine 1.023 (1.010-1.025); Squamous Epithelial Cell,Urine Moderate per hpf (None-Few); Urobilinogen,Urine Normal (Normal)
[2021-12-12 13:00] LABS: Amphetamine Screen,Urine Negative ng/mL (Cutoff=1000); Barbiturate Screen,Urine Negative ng/mL (Cutoff=200); Benzodiazepines Screen,Urine Negative ng/mL (Cutoff=200); Cannabinoid Screen,Urine Negative ng/mL (Cutoff = 50); Cocaine Screen,Urine Negative ng/mL (Cutoff= 300); Opiate Screen,Urine Negative ng/mL (Cutoff=300); Phencyclidine Screen,Urine Negative ng/mL (Cutoff=25)
[2021-12-12 13:11] LABS: Acetaminophen < 10 mcg/mL (10-20); BUN/Creatinine Ratio 23 (6-26); Blood Urea Nitrogen 18 mg/dL (6-20); Calcium 9.4 mg/dL (8.6-10.3); Carbon Dioxide 18 mEq/L (23-29); Chloride 110 mEq/L (98-107); Chol/HDL Ratio 4.1 (0-4.9); Cholesterol 193 mg/dL (< 200); Ethanol < 10 mg/dL (Less than 10); Glucose 145 mg/dL (70-105); HDL Cholesterol 47 mg/dL (40-59); LDL Cholesterol,Calculated 122 mg/dL (< 100); Osmolality,Calculated 288 (280-300); Potassium 3.6 mEq/L (3.5-5.1); Salicylate < 2.5 mg/dL (15.0-30.0); Sodium 137 mEq/L (136-145); Triglycerides 118 mg/dL (< 150)
[2021-12-12 14:33] LABS: Estimated Average Glucose 114 mg/dl; Hemoglobin A1C 5.6 %
[2021-12-12 14:44] LABS: Candida DNA Not Detected (Not Detect); Gardnerella DNA Not Detected (Not Detect); Trichomonas DNA Not Detected (Not Detect)
[2021-12-12 22:22] LABS: Influenza A PCR Negative (Negative); Influenza B PCR Negative (Negative); Resp. Syncytial Virus PCR Negative (Negative)
[2021-12-12 22:47] LABS: SARS-CoV-2 by PCR (In House) Negative (Negative)
[2021-12-12] MEDS ORDERED: *HR* LORazepam 2 MG/ML VIAL IM PRN (23:02)
[2021-12-12] MEDS ORDERED: *HR* LORazepam 1 MG TABLET PO PRN (23:02)
[2021-12-12] MEDS ORDERED: haloperidoL 5 MG TABLET PO PRN (23:02)
[2021-12-12] MEDS ORDERED: Haloperidol Lactate 5 MG/ML VIAL IM PRN (23:02)
[2021-12-12] MEDS ORDERED: traZODone 50 MG TABLET PO PRN (23:02)
[2021-12-12] MEDS ORDERED: hydrOXYzine pamoate 25 MG CAPSULE PO PRN (23:02)
[2021-12-12] MEDS ORDERED: Rizatriptan Benzoate [Rizatriptan] 10 MG PO PRN (23:42)
[2021-12-13] MEDS ORDERED: SUMAtriptan succinate 50 MG TABLET PO PRN (00:30)
[2021-12-13] MEDS ORDERED: Mag Hydrox/Al Hydrox/Simeth 30 ML UDC PO PRN (12:27)
[2021-12-13] MEDS ORDERED: MOM Conc 10 ML UD.LIQ PO PRN (12:27)
[2021-12-13] MEDS: Lurasidone 20 MG TABLET PO SCH (17:12)
[2021-12-13] MEDS ORDERED: Rizatriptan Benzoate [Rizatriptan] 10 MG PO PRN (18:27)
[2021-12-13] MEDS ORDERED: traZODone 50 MG TABLET PO SCH (21:00)
[2021-12-14] MEDS ORDERED: TOPIRAMATE 100 MG PO SCH (09:00)
[2021-12-14] MEDS: Acetaminophen 325 MG TABLET PO PRN (17:34)
[2021-12-14] MEDS: Lurasidone 20 MG TABLET PO SCH (17:34)
[2021-12-14] MEDS ORDERED: Topiramate [Trokendi Xr] 100 MG Cap.Er.24h PO SCH (21:00)
[2021-12-15] MEDS: Acetaminophen 325 MG TABLET PO PRN (09:08)
[2021-12-15] MEDS ORDERED: Loratadine 10 MG TABLET PO PRN (10:59)
[2021-12-15] MEDS ORDERED: GuaiFENesin/Dextromethorphan TABLET PO PRN (10:59)
[2021-12-15 11:15] VITALS: BP 121/87; PULSE 99; TEMP 97.4; O2SAT 99
[2021-12-15] MEDS ORDERED: Ondansetron Oral Soln 2 MG/2.5 ML ORAL.SYG PO PRN (12:16)
[2021-12-15 13:45] LABS: Influenza A PCR Negative (Negative); Influenza B PCR Negative (Negative); Resp. Syncytial Virus PCR Negative (Negative)
[2021-12-15 13:48] LABS: SARS-CoV-2 by PCR (In House) Positive (Negative)
== END 2021-12-15 14:15 | disposition other institution (70) | DRG 751 ==
LOC: EMEROOARM 11:50 → 1ANU 22:59
PROVIDERS: ADMIT Psychiatry & Neurology Forensic Psychiatry; ATTEND Psychiatry & Neurology Forensic Psychiatry

== ENCOUNTER 2021-12-15 13:07 | Observation (INO) ==
[2021-12-15] MEDS ORDERED: Ipratropium 1 PUFF INHALER IH PRN (13:36)
[2021-12-15] MEDS ORDERED: Acetaminophen 325 MG TABLET PO PRN (13:36)
[2021-12-15] MEDS ORDERED: Naloxone 0.4 MG/ML INJ IVP PRN (13:37)
[2021-12-15] MEDS ORDERED: Ondansetron 4 MG/2 ML VIAL IVP PRN (13:37)
[2021-12-15] MEDS ORDERED: Rizatriptan Benzoate [Rizatriptan] 10 MG Tab.Rapdis PO PRN (13:55)
[2021-12-15] MEDS ORDERED: traZODone 50 MG TABLET PO PRN (13:55)
[2021-12-15] MEDS ORDERED: hydrOXYzine pamoate 25 MG CAPSULE PO PRN (13:55)
[2021-12-15] MEDS ORDERED: [UNRECOGNIZED DRUG - OTHER] SUBQ SCH (14:00)
[2021-12-15] MEDS ORDERED: ERENUMAB SUBQ SCH (14:00)
[2021-12-15 16:42] LABS: Basophils % 0.3 %; Eosinophils % 0.6 %; Hematocrit 39.4 % (35.3-44.9); Hemoglobin 13.1 g/dL (11.5-15.4); Immature Granulocytes % 0.3 % (0-4); Lymphocytes # 2.4 K/mcL (0.6-4.6); Lymphocytes % 35.2 %; Mean Corpuscular HGB Conc 33.2 g/dL (31.6-35.5); Mean Corpuscular Hemoglobin 29.6 pg (28.0-33.3); Mean Corpuscular Volume 88.9 fL (83.0-100.0); Mean Platelet Volume 9.3 fL (9.4-12.4); Monocytes # 0.9 K/mcL (0.0-1.3); Monocytes % 13.9 %; Neutrophils # 3.3 K/mcL (1.6-8.9); Platelet Count 225 K/mcL (140-400); Red Blood Count 4.43 M/mcL (3.82-4.97); Red Cell Distribution Width 11.8 % (11.5-14.5); Segmented Neutrophils % 49.7 %; White Blood Count 6.7 K/mcL (4.3-11.1)
[2021-12-15] MEDS ORDERED: Lurasidone 20 MG TABLET PO SCH (17:00)
[2021-12-15 17:10] LABS: Alanine Aminotransferase 10 Units/L (7-52); Albumin 4.1 g/dL (3.5-5.7); Albumin/Globulin Ratio 1.4 (1.1-2.2); Alkaline Phosphatase 74 Units/L (34-104); Aspartate Amino Transferase 11 Units/L (13-39); BUN/Creatinine Ratio 25 (6-26); Bilirubin,Total 0.3 mg/dL (0.3-1.0); Blood Urea Nitrogen 16 mg/dL (6-20); C-Reactive Protein < 5 mg/L (Less than 10); Calcium 9.2 mg/dL (8.6-10.3); Carbon Dioxide 22 mEq/L (23-29); Chloride 108 mEq/L (98-107); Glucose 94 mg/dL (70-105); Lactate Dehydrogenase 113 Units/L (140-271); Osmolality,Calculated 283 (280-300); Potassium 4.1 mEq/L (3.5-5.1); Sodium 136 mEq/L (136-145); Total Protein 7.1 g/dL (6.4-8.9)
[2021-12-15 17:35] LABS: Ferritin 73 ng/mL (10-120)
[2021-12-16] MEDS ORDERED: *HR* Enoxaparin 40 MG/0.4 ML SYRINGE SQ SCH (06:00)
[2021-12-16] MEDS ORDERED: Topiramate [Trokendi Xr] 100 MG Cap.Er.24h PO SCH (09:00)
[2021-12-16 12:04] VITALS: BP 110/77; PULSE 80; TEMP 99.2; O2SAT 97
== END 2021-12-16 16:18 | disposition home or self-care (01) ==
LOC: 2ANU
PROVIDERS: ADMIT General Practice; ATTEND General Practice